=== PATIENT | male | born 1960 | race Caucasian/White ===

== ENCOUNTER 2020-03-12 08:51 | Emergency (ER) | payer OTHER ==
[~2020-03-12] VITALS: Ht 165.1 cm; Wt 70.0 kg
[2020-03-12 08:53] VITALS: BP 141/93
== END 2020-03-12 09:01 | disposition home or self-care (01) ==
LOC: ED 08:55
DX: R50.9 Fever, unspecified (principal); Z20.828 Contact with and (suspected) exposure to other viral communicable diseases; R53.83 Other fatigue; I10 Essential (primary) hypertension; E11.9 Type 2 diabetes mellitus without complications
CPT/HCPCS: 99283; U0003

== ENCOUNTER 2020-03-20 19:27 | Inpatient (IN) | payer OTHER ==
[~2020-03-20] VITALS: Ht 165.1 cm; Wt 67.8 kg
[2020-03-20] MEDS ORDERED: IBUPROFEN 200 MG TABLET PO ONE (20:00)
[2020-03-20] MEDS ORDERED: DEXAMETHASONE 4 MG/ML, 1ML IV ONE (20:00)
[2020-03-20] MEDS ORDERED: DEXAMETHASONE 4 MG/ML, 1ML ONE (20:25)
[2020-03-20 20:29] LABS: BASOPHILS % (AUTO) 0 % (0-1); EOSINOPHILS % (AUTO) 0 % (1-7); LYMPHOCYTES % (AUTO) 13 % (22-44); MEAN CORPUSCULAR HEMOGLOBIN 30.9 pg (27.5-34.5); MEAN CORPUSCULAR HGB CONC 34.3 g/dL (33.2-36.2); MEAN PLATELET VOLUME 10.5 fL (7.4-10.4); MONOCYTES % (AUTO) 9 % (2-9); NEUTROPHILS % (AUTO) 77 % (42-75); PLATELET COUNT 125 x10^3/uL (130-400); RED BLOOD COUNT 4.65 x10^6/uL (4.38-5.82); RED CELL DISTRIBUTION WIDTH 13.7 % (9.4-14.8)
[2020-03-20 20:31] LABS: MD NO
[2020-03-20 20:34] LABS: ALANINE AMINOTRANSFERASE 73 U/L (12-78); ALBUMIN 3.6 g/dL (3.4-5.0); ANION GAP 8 mmol/L (5-15); CHLORIDE 102 mmol/L (98-107)
[2020-03-20 20:41] LABS: ALKALINE PHOSPHATASE 62 U/L (45-117); BILIRUBIN,TOTAL 0.4 mg/dL (0.2-1.0); TOTAL PROTEIN 8.1 g/dL (6.4-8.2)
[2020-03-20 21:31] LABS: D-DIMER (DIC) 0.49 ug/mlFEU (0.00-0.52)
[2020-03-20] MEDS ORDERED: OMNIPAQUE 350 MG/ML, 100ML BOTTLE ONE (23:24)
[2020-03-20 23:49] VITALS: BP 144/82
[2020-03-21] VITALS (8 sets, daily range): BP systolic 118–134; BP diastolic 64–84
[2020-03-21] MEDS ORDERED: LACTATED RINGERS 1,000 ML IV SCH
[2020-03-21] MEDS ORDERED: PHARMACY MAY ADJ FOR RENAL FX MC PRN
[2020-03-21] MEDS ORDERED: ACETAMINOPHEN 325 MG TABLET PO PRN
[2020-03-21] MEDS ORDERED: LIDODERM 5% PATCH TD PRN
[2020-03-21] MEDS ORDERED: hydrALAzine 20 MG/ML, 1ML IVPush PRN
[2020-03-21] MEDS ORDERED: DOCUSATE 100 MG CAPSULE PO PRN
[2020-03-21] MEDS ORDERED: ATOR20TA PO (00:10)
[2020-03-21] MEDS ORDERED: AMLO-211 PO (00:10)
[2020-03-21] MEDS ORDERED: METF10007 PO (00:10)
[2020-03-21] MEDS: CEFTRIAXONE PMX 1GM/50ML 50 ML IV SCH ×2 (00:14→23:57)
[2020-03-21] MEDS: AZITHROMYCIN 500 MG in SODIUM CHLORIDE 0.9% 250 ML IV SCH (00:50)
[2020-03-21 06:19] LABS: BASOPHILS % (AUTO) 0 % (0-1); EOSINOPHILS % (AUTO) 0 % (1-7); LYMPHOCYTES % (AUTO) 11 % (22-44); MEAN CORPUSCULAR HEMOGLOBIN 30.8 pg (27.5-34.5); MEAN CORPUSCULAR HGB CONC 34.3 g/dL (33.2-36.2); MEAN PLATELET VOLUME 10.8 fL (7.4-10.4); MONOCYTES % (AUTO) 4 % (2-9); NEUTROPHILS % (AUTO) 85 % (42-75); PLATELET COUNT 115 x10^3/uL (130-400); RED BLOOD COUNT 4.21 x10^6/uL (4.38-5.82); RED CELL DISTRIBUTION WIDTH 13.7 % (9.4-14.8)
[2020-03-21 06:23] LABS: CHLORIDE 104 mmol/L (98-107)
[2020-03-21 06:32] LABS: D-DIMER 0.45 ug/mlFEU (0.00-0.52); INTERNATIONAL NORMALIZED RATIO 0.99 (0.93-1.1); PROTHROMBIN TIME 10.5 Seconds (9.6-11.5)
[2020-03-21 06:33] LABS: MD NO
[2020-03-21 06:36] LABS: HCT (SEDRATE) 37.8 % (39.2-51.8)
[2020-03-21 06:37] LABS: ANION GAP 8 mmol/L (5-15); CALCIUM 8.6 mg/dL (8.5-10.1); CREATINE KINASE, TOTAL 84 U/L (39-308); CREATININE 0.99 mg/dL (0.7-1.3)
[2020-03-21] MEDS: INSULIN LISPRO 100 UNITS/ML, PEN SQ-INSULIN SCH ×4 (07:41→20:36)
[2020-03-21] MEDS: AMLODIPINE 10 MG TAB PO SCH (08:21)
[2020-03-21] MEDS: ZINC SULFATE 220 MG CAPSULE PO SCH (08:21)
[2020-03-21] MEDS: ASCORBIC ACID 500 MG TABLET PO SCH ×2 (08:21→20:35)
[2020-03-21] MEDS: HEPARIN 5,000 UNITS/ML, 1ML SQ SCH ×2 (08:22)
[2020-03-21] MEDS: CHOLECALCIFEROL 5,000u TAB PO SCH (08:22)
[2020-03-21] MEDS: GUAIFENESIN/DM 200-20MG, 10ML UDC PO PRN ×3 (08:32→23:57)
[2020-03-21] MEDS ORDERED: INSULIN GLARGINE 100 UNITS/ML, PEN SQ-INSULIN SCH (09:00)
[2020-03-21] MEDS ORDERED: INSULIN GLARGINE 100 UNITS/ML, PEN SQ-INSULIN ONE (09:00)
[2020-03-21] MEDS: LACTOBACILLUS CHEW TABLET PO SCH ×2 (09:54→20:35)
[2020-03-21] MEDS: OMEPRAZOLE 20 MG CAPSULE.DR PO SCH (09:55)
[2020-03-21] MEDS: DEXAMETHASONE 4 MG/ML, 5ML IVPush SCH (11:26)
[2020-03-21] MEDS: ENOXAPARIN 40 MG/0.4 ML SQ SCH (11:26)
[2020-03-21] MEDS ORDERED: REMDESIVIR 200 MG in SODIUM CHLORIDE 0.9% 250 ML IVPB ONE (15:30)
[2020-03-21] MEDS ORDERED: PHARMACY INSTRUCTION MC PRN (15:30)
[2020-03-21] MEDS: THIAMINE 100MG TABLET PO SCH (15:44)
[2020-03-21] MEDS: ATORVASTATIN 20 MG TABLET PO SCH (20:35)
[2020-03-21] MEDS: INSULIN GLARGINE 100 UNITS/ML, PEN SQ-INSULIN SCH (20:37)
[2020-03-21] MEDS: MELATONIN 5 MG TABLET PO PRN (20:44)
[2020-03-22 00:48] VITALS: BP 106/68
[2020-03-22] MEDS: AZITHROMYCIN 500 MG in SODIUM CHLORIDE 0.9% 250 ML IV SCH ×2 (00:48→22:17)
[2020-03-22 05:52] LABS: BASOPHILS % (AUTO) 0 % (0-1); EOSINOPHILS % (AUTO) 0 % (1-7); LYMPHOCYTES % (AUTO) 10 % (22-44); MEAN CORPUSCULAR HEMOGLOBIN 30.3 pg (27.5-34.5); MEAN PLATELET VOLUME 10.3 fL (7.4-10.4); MONOCYTES % (AUTO) 8 % (2-9); NEUTROPHILS % (AUTO) 83 % (42-75); PLATELET COUNT 141 x10^3/uL (130-400); RED BLOOD COUNT 4.15 x10^6/uL (4.38-5.82); RED CELL DISTRIBUTION WIDTH 13.6 % (9.4-14.8)
[2020-03-22 06:04] LABS: CHLORIDE 105 mmol/L (98-107)
[2020-03-22 06:15] LABS: MD NO
[2020-03-22 06:19] LABS: ALANINE AMINOTRANSFERASE 67 U/L (12-78); ALBUMIN 3.2 g/dL (3.4-5.0); ALKALINE PHOSPHATASE 52 U/L (45-117); ANION GAP 7 mmol/L (5-15); BILIRUBIN,TOTAL 0.3 mg/dL (0.2-1.0); CALCIUM 8.8 mg/dL (8.5-10.1); CREATINE KINASE, TOTAL 92 U/L (39-308); CREATININE 0.92 mg/dL (0.7-1.3); TOTAL PROTEIN 6.8 g/dL (6.4-8.2)
[2020-03-22 06:34] LABS: HCT (SEDRATE) 37.1 % (39.2-51.8)
[2020-03-22 06:52] VITALS: BP 112/74
[2020-03-22] MEDS: ZINC SULFATE 220 MG CAPSULE PO SCH (08:09)
[2020-03-22] MEDS: AMLODIPINE 10 MG TAB PO SCH (08:09)
[2020-03-22] MEDS: ASCORBIC ACID 500 MG TABLET PO SCH ×2 (08:09→21:35)
[2020-03-22] MEDS: DEXAMETHASONE 4 MG/ML, 5ML IVPush SCH (08:09)
[2020-03-22] MEDS: OMEPRAZOLE 20 MG CAPSULE.DR PO SCH (08:10)
[2020-03-22] MEDS: THIAMINE 100MG TABLET PO SCH (08:10)
[2020-03-22] MEDS: CHOLECALCIFEROL 5,000u TAB PO SCH (08:10)
[2020-03-22] MEDS: LACTOBACILLUS CHEW TABLET PO SCH ×2 (08:10→21:35)
[2020-03-22] MEDS: INSULIN LISPRO 100 UNITS/ML, PEN SQ-INSULIN SCH ×4 (08:11→21:37)
[2020-03-22] MEDS: INSULIN GLARGINE 100 UNITS/ML, PEN SQ-INSULIN SCH ×2 (08:12→21:38)
[2020-03-22] MEDS ORDERED: LOPERAMIDE 2 MG CAPSULE PO PRN (09:30)
[2020-03-22] MEDS ORDERED: LOPERAMIDE 2 MG CAPSULE PO ONE (09:30)
[2020-03-22] MEDS: GUAIFENESIN/DM 200-20MG, 10ML UDC PO PRN ×2 (11:33→21:35)
[2020-03-22] MEDS: ENOXAPARIN 40 MG/0.4 ML SQ SCH (11:34)
[2020-03-22 12:04] VITALS: BP 127/79
[2020-03-22] MEDS: REMDESIVIR 100 MG in SODIUM CHLORIDE 0.9% 250 ML IVPB SCH (16:00)
[2020-03-22 16:04] VITALS: BP 122/77
[2020-03-22] MEDS ORDERED: LOPERAMIDE 1 MG/7.5 ML LIQUID PO PRN ×2 (21:00→21:34)
[2020-03-22 21:04] VITALS: BP 121/75
[2020-03-22] MEDS: CEFTRIAXONE PMX 1GM/50ML 50 ML IV SCH (21:30)
[2020-03-22] MEDS: ATORVASTATIN 20 MG TABLET PO SCH (21:35)
[2020-03-22] MEDS: MELATONIN 5 MG TABLET PO PRN (21:36)
[2020-03-22] MEDS ORDERED: CEFTRIAXONE PMX 1GM/50ML 50 ML IV SCH (23:30)
[2020-03-23 00:03] VITALS: BP 108/66
[2020-03-23 04:59] VITALS: BP 109/72
[2020-03-23 06:40] LABS: BASOPHILS % (AUTO) 0 % (0-1); EOSINOPHILS % (AUTO) 0 % (1-7); LYMPHOCYTES % (AUTO) 12 % (22-44); MEAN CORPUSCULAR HEMOGLOBIN 30.7 pg (27.5-34.5); MEAN PLATELET VOLUME 10.4 fL (7.4-10.4); MONOCYTES % (AUTO) 8 % (2-9); NEUTROPHILS % (AUTO) 81 % (42-75); PLATELET COUNT 175 x10^3/uL (130-400); RED BLOOD COUNT 4.23 x10^6/uL (4.38-5.82); RED CELL DISTRIBUTION WIDTH 13.8 % (9.4-14.8)
[2020-03-23 06:41] LABS: HCT (SEDRATE) 39.3 % (39.2-51.8); MD NO
[2020-03-23 07:02] LABS: ALBUMIN 3.1 g/dL (3.4-5.0); ANION GAP 7 mmol/L (5-15); CALCIUM 8.7 mg/dL (8.5-10.1); CHLORIDE 106 mmol/L (98-107)
[2020-03-23 07:05] LABS: ALANINE AMINOTRANSFERASE 87 U/L (12-78); ALKALINE PHOSPHATASE 57 U/L (45-117); BILIRUBIN,TOTAL 0.3 mg/dL (0.2-1.0); CREATINE KINASE, TOTAL 99 U/L (39-308); CREATININE 0.94 mg/dL (0.7-1.3); TOTAL PROTEIN 7.3 g/dL (6.4-8.2)
[2020-03-23 07:47] VITALS: BP 112/73
[2020-03-23] MEDS: ZINC SULFATE 220 MG CAPSULE PO SCH (08:02)
[2020-03-23] MEDS: THIAMINE 100MG TABLET PO SCH (08:02)
[2020-03-23] MEDS: CHOLECALCIFEROL 5,000u TAB PO SCH (08:02)
[2020-03-23] MEDS: LACTOBACILLUS CHEW TABLET PO SCH ×2 (08:02→21:06)
[2020-03-23] MEDS: AMLODIPINE 10 MG TAB PO SCH (08:02)
[2020-03-23] MEDS: ASCORBIC ACID 500 MG TABLET PO SCH ×2 (08:02→21:05)
[2020-03-23] MEDS: OMEPRAZOLE 20 MG CAPSULE.DR PO SCH (08:02)
[2020-03-23] MEDS: DEXAMETHASONE 4 MG/ML, 5ML IVPush SCH (08:02)
[2020-03-23] MEDS: INSULIN LISPRO 100 UNITS/ML, PEN SQ-INSULIN SCH ×4 (08:03→21:08)
[2020-03-23] MEDS: INSULIN GLARGINE 100 UNITS/ML, PEN SQ-INSULIN SCH ×2 (08:04→21:08)
[2020-03-23 08:46] LABS: D-DIMER 0.4 ug/mlFEU (0.00-0.52); INTERNATIONAL NORMALIZED RATIO 1.03 (0.93-1.1); PROTHROMBIN TIME 10.9 Seconds (9.6-11.5)
[2020-03-23] MEDS: ENOXAPARIN 40 MG/0.4 ML SQ SCH (11:34)
[2020-03-23] MEDS: LOPERAMIDE 2 MG CAPSULE PO PRN ×2 (11:35→21:06)
[2020-03-23 12:48] VITALS: BP 118/78
[2020-03-23] MEDS: REMDESIVIR 100 MG in SODIUM CHLORIDE 0.9% 250 ML IVPB SCH (15:33)
[2020-03-23 18:41] VITALS: BP 119/74
[2020-03-23] MEDS ORDERED: AZITHROMYCIN 500 MG in SODIUM CHLORIDE 0.9% 250 ML IV SCH ×2 (21:00)
[2020-03-23] MEDS: CEFTRIAXONE PMX 1GM/50ML 50 ML IV SCH (21:00)
[2020-03-23] MEDS: GUAIFENESIN/DM 200-20MG, 10ML UDC PO PRN (21:05)
[2020-03-23] MEDS: ATORVASTATIN 20 MG TABLET PO SCH (21:06)
[2020-03-23] MEDS: MELATONIN 5 MG TABLET PO PRN (21:06)
[2020-03-23] MEDS: AZITHROMYCIN 500 MG in SODIUM CHLORIDE 0.9% 250 ML IV SCH (21:53)
[2020-03-24] VITALS: BP 115/73
[2020-03-24 00:04] VITALS: BP 122/77
[2020-03-24 04:51] LABS: BASOPHILS % (AUTO) 0 % (0-1); EOSINOPHILS % (AUTO) 0 % (1-7); HCT (SEDRATE) 38.2 % (39.2-51.8); LYMPHOCYTES % (AUTO) 13 % (22-44); MEAN CORPUSCULAR HEMOGLOBIN 30.9 pg (27.5-34.5); MEAN CORPUSCULAR HGB CONC 34.4 g/dL (33.2-36.2); MEAN PLATELET VOLUME 10.1 fL (7.4-10.4); MONOCYTES % (AUTO) 11 % (2-9); NEUTROPHILS % (AUTO) 76 % (42-75); PLATELET COUNT 188 x10^3/uL (130-400); RED CELL DISTRIBUTION WIDTH 13.8 % (9.4-14.8)
[2020-03-24 04:54] LABS: MD NO
[2020-03-24 05:00] LABS: D-DIMER 0.35 ug/mlFEU (0.00-0.52)
[2020-03-24 05:11] LABS: ALBUMIN 3.1 g/dL (3.4-5.0); ANION GAP 5 mmol/L (5-15); CALCIUM 8.4 mg/dL (8.5-10.1); CHLORIDE 109 mmol/L (98-107)
[2020-03-24 05:20] LABS: CREATININE 0.92 mg/dL (0.7-1.3)
[2020-03-24 05:21] LABS: ALANINE AMINOTRANSFERASE 76 U/L (12-78); ALKALINE PHOSPHATASE 53 U/L (45-117); BILIRUBIN,TOTAL 0.3 mg/dL (0.2-1.0); CREATINE KINASE, TOTAL 73 U/L (39-308); TOTAL PROTEIN 6.8 g/dL (6.4-8.2)
[2020-03-24 06:43] VITALS: BP 132/78
[2020-03-24] MEDS: INSULIN GLARGINE 100 UNITS/ML, PEN SQ-INSULIN SCH ×2 (08:10→20:17)
[2020-03-24] MEDS: DEXAMETHASONE 4 MG/ML, 5ML IVPush SCH (08:10)
[2020-03-24] MEDS: LACTOBACILLUS CHEW TABLET PO SCH ×2 (08:11→20:18)
[2020-03-24] MEDS: AMLODIPINE 10 MG TAB PO SCH (08:11)
[2020-03-24] MEDS: ZINC SULFATE 220 MG CAPSULE PO SCH (08:11)
[2020-03-24] MEDS: CHOLECALCIFEROL 5,000u TAB PO SCH (08:11)
[2020-03-24] MEDS: INSULIN LISPRO 100 UNITS/ML, PEN SQ-INSULIN SCH ×4 (08:11→20:18)
[2020-03-24] MEDS: THIAMINE 100MG TABLET PO SCH (08:11)
[2020-03-24] MEDS: ASCORBIC ACID 500 MG TABLET PO SCH ×2 (08:11→20:18)
[2020-03-24] MEDS: OMEPRAZOLE 20 MG CAPSULE.DR PO SCH (08:11)
[2020-03-24] MEDS ORDERED: OMEP-110 PO (11:18)
[2020-03-24] MEDS ORDERED: CHOL500045 PO (11:18)
[2020-03-24] MEDS ORDERED: METF500T3 PO (11:18)
[2020-03-24] MEDS ORDERED: THIA100T67 PO (11:18)
[2020-03-24] MEDS ORDERED: ASCO500T9 PO (11:18)
[2020-03-24] MEDS ORDERED: ZINC220C7 PO (11:18)
[2020-03-24] MEDS: metFORMIN XR 500 MG TAB.ER.24H PO SCH (11:35)
[2020-03-24] MEDS: ENOXAPARIN 40 MG/0.4 ML SQ SCH (11:36)
[2020-03-24 12:19] VITALS: BP 123/80
[2020-03-24] MEDS: REMDESIVIR 100 MG in SODIUM CHLORIDE 0.9% 250 ML IVPB SCH (15:49)
[2020-03-24] MEDS ORDERED: INSULIN LISPRO 100 UNITS/ML, PEN SQ-INSULIN SCH (16:00)
[2020-03-24 20:00] VITALS: BP 128/76
[2020-03-24] MEDS: ATORVASTATIN 20 MG TABLET PO SCH (20:18)
[2020-03-24] MEDS: MELATONIN 5 MG TABLET PO PRN (20:18)
[2020-03-24] MEDS: CEFTRIAXONE PMX 1GM/50ML 50 ML IV SCH (20:19)
[2020-03-24] MEDS: AZITHROMYCIN 500 MG in SODIUM CHLORIDE 0.9% 250 ML IV SCH (21:50)
[2020-03-25 01:57] VITALS: BP 131/73
[2020-03-25] MEDS: OMEPRAZOLE 20 MG CAPSULE.DR PO SCH (06:28)
[2020-03-25 06:47] LABS: ALBUMIN 2.8 g/dL (3.4-5.0); ANION GAP 5 mmol/L (5-15); CALCIUM 8.3 mg/dL (8.5-10.1); CHLORIDE 107 mmol/L (98-107); HCT (SEDRATE) 36.1 % (39.2-51.8)
[2020-03-25 06:56] VITALS: BP 133/80
[2020-03-25 06:56] LABS: ALANINE AMINOTRANSFERASE 122 U/L (12-78); ALKALINE PHOSPHATASE 54 U/L (45-117); BILIRUBIN,TOTAL 0.3 mg/dL (0.2-1.0); CREATINE KINASE, TOTAL 64 U/L (39-308); CREATININE 0.88 mg/dL (0.7-1.3); TOTAL PROTEIN 6.2 g/dL (6.4-8.2)
[2020-03-25] MEDS: INSULIN LISPRO 100 UNITS/ML, PEN SQ-INSULIN SCH ×3 (07:19→16:06)
[2020-03-25] MEDS: INSULIN GLARGINE 100 UNITS/ML, PEN SQ-INSULIN SCH (07:20)
[2020-03-25 07:32] LABS: D-DIMER 0.38 ug/mlFEU (0.00-0.52); INTERNATIONAL NORMALIZED RATIO 1.1 (0.93-1.1); PROTHROMBIN TIME 11.7 Seconds (9.6-11.5)
[2020-03-25] MEDS: ASCORBIC ACID 500 MG TABLET PO SCH (07:58)
[2020-03-25] MEDS: CHOLECALCIFEROL 5,000u TAB PO SCH (07:58)
[2020-03-25] MEDS: ZINC SULFATE 220 MG CAPSULE PO SCH (07:58)
[2020-03-25] MEDS: LACTOBACILLUS CHEW TABLET PO SCH (07:58)
[2020-03-25] MEDS: THIAMINE 100MG TABLET PO SCH (07:58)
[2020-03-25] MEDS: DEXAMETHASONE 4 MG/ML, 5ML IVPush SCH (07:58)
[2020-03-25] MEDS: metFORMIN XR 500 MG TAB.ER.24H PO SCH (07:58)
[2020-03-25] MEDS: AMLODIPINE 10 MG TAB PO SCH (07:58)
[2020-03-25] MEDS ORDERED: INSULIN GLARGINE 100 UNITS/ML, PEN SQ-INSULIN SCH (08:00)
[2020-03-25] MEDS ORDERED: INSU100I13 SQ-INSULIN (11:03)
[2020-03-25] MEDS ORDERED: AMOX1TAB64 PO (11:19)
[2020-03-25] MEDS ORDERED: AZIT500T10 PO (11:19)
[2020-03-25] MEDS ORDERED: DEXA6TAB6 PO (11:20)
[2020-03-25] MEDS: ENOXAPARIN 40 MG/0.4 ML SQ SCH (12:00)
[2020-03-25 12:28] VITALS: BP 119/78
[2020-03-25] MEDS: REMDESIVIR 100 MG in SODIUM CHLORIDE 0.9% 250 ML IVPB SCH (13:57)
== END 2020-03-25 18:16 | disposition home or self-care (01) | DRG 871 ==
LOC: ED 22:07 → 3N 23:44
PROVIDERS: ADMIT Family Medicine; ATTEND Hospitalist
PROC: XW033E5 Introduction of Remdesivir Anti-infective into Peripheral Vein, Percutaneous Approach, New Technology Group 5 (ICD-10-PCS; principal; 2020-03-22)
DX: A41.89 Other specified sepsis (principal); J12.89 Other viral pneumonia; U07.1 COVID-19; D69.6 Thrombocytopenia, unspecified; E11.65 Type 2 diabetes mellitus with hyperglycemia; Z88.2 Allergy status to sulfonamides; E78.5 Hyperlipidemia, unspecified; I10 Essential (primary) hypertension
CPT/HCPCS: 36415; 71045; 71275; 80048; 80053; 82550; 82728; 82962; 83605; 83615; 83735; 83880; 84100; 84145; 85025; 85049; 85379; 85384; 85610; 85651; 85730; 86140; 87040; 93005; 99285; G0378; J0456; J0696; J1100; J1644; J1650; Q9967; J1815; J7050; J7120

== ENCOUNTER 2020-11-15 08:53 | Outpatient (CLI) | payer OTHER ==
[~2020-11-15 08:53] MED LIST: AMLO-211 PO; AMOX1TAB64 PO; ASCO500T9 PO; ATOR20TA PO; AZIT500T10 PO; CHOL500045 PO; DEXA6TAB6 PO; INSU100I13 SQ-INSULIN; METF10007 PO; METF500T3 PO; OMEP-110 PO; THIA100T67 PO; ZINC220C7 PO
[2020-11-15 09:22] LABS: ALANINE AMINOTRANSFERASE 44 U/L (12-78); ALBUMIN 4.2 g/dL (3.4-5.0); ANION GAP 6 mmol/L (5-15); CALCIUM 9.7 mg/dL (8.5-10.1); CHLORIDE 102 mmol/L (98-107); CREATININE 0.96 mg/dL (0.7-1.3)
[2020-11-15 09:59] LABS: ALKALINE PHOSPHATASE 47 U/L (45-117); CHOLESTEROL, TOTAL 174 mg/dL (140-239); TRIGLYCERIDES 116 mg/dL (50-200); VLDL CHOLESTEROL 23 mg/dL (0-25)
[2020-11-15 10:35] LABS: BILIRUBIN,TOTAL 0.5 mg/dL (0.2-1.0); CHOL/HDL RATIO 3.8; HDL CHOL % 26 % (26-37); HDL CHOLESTEROL (DIRECT) 46 mg/dL (40-60); LDL CHOLESTEROL,CALCULATED 105 mg/dL (54-169); LDL/HDL RATIO 2.3 (0.5-3.0)
== END 2020-11-15 23:59 | disposition home or self-care (01) ==
LOC: LAB 08:53
PROVIDERS: ATTEND Family Medicine
DX: E11.69 Type 2 diabetes mellitus with other specified complication (principal)
CPT/HCPCS: 36415; 80053; 80061; 82043; 83036